=== PATIENT | female | born 2005 ===

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

== ENCOUNTER → 2025-01-28 | Outpatient (CLI) | payer BC, OTHER ==
[~2025-01-28] MED LIST changes: +CEPH500 PO
== END ==
LOC: LAB 16:30 → LAB SHORT 16:30
DX: R39.9 Unspecified symptoms and signs involving the genitourinary system (principal)
CPT/HCPCS: 87086

== ENCOUNTER → 2025-02-02 | Outpatient (CLI) | payer BC, OTHER ==
[2025-02-05 16:32] LABS: CALPROTECTIN,FECAL 11 ug/g (<=49)
== END | disposition home or self-care (01) ==
LOC: LAB 17:47 → LAB SHORT 17:47
PROVIDERS: Physician Assistant Medical
DX: R10.84 Generalized abdominal pain (principal)
CPT/HCPCS: 83993